=== PATIENT | male | born 1955 | race African-American/Black ===

== ENCOUNTER → 2017-04-03 | Outpatient (CLI) | payer MEDICARE, OTHER ==
[~2017-04-03] MED LIST: AMBIEN10 M1 ORAL; ATENOLOL25 MG ORAL; Bupivacaine 0.25% Inj 30ml INJ ONE; LEXAPRO10 MG ORAL; LISINOPRIL20 MG ORAL; LORAZEPAM1 MG ORAL; LYRICA25 MG ORAL; Propofol 10mg/ml 20ml IV ONE; Ropivacaine 5mg/ml Vial 20ml INJ ONE; VITAMIN D50000 UNI1 PO; [UNRECOGNIZED DRUG - OTHER] SQ
--- NOTE | 2017-04-03 11:33 | Diagnostic Imaging Report ---
Indication: Chest pain Technique: Continuous helical transaxial imaging of the chest was obtained from the thoracic inlet to the upper abdomen. No intravenous contrast was administered. Coronal 2-D reformats were also obtained. Total Dose length Product (DLP): [address] Dose Index Volume (CTDIvol): 17 mGy Comparison: 04/16/14 Findings: There are a few scattered hypodensities noted within the lungs. There is one 4 mm density at the left lower lobe again noted which was described previously and appears unchanged. There is evidence of old granulomatous disease with calcification in the left hilum and mediastinum. The aorta is normal caliber with some very mild mural calcification. The heart is unremarkable. The visualized part of the upper abdomen is unremarkable. Impression: Evidence of old right lowest disease. Other tiny noncalcified nodules appear stable compared to 04/16/14. Mild atherosclerotic vascular disease The CT scanner at [facility] is accredited by the [employer] and the scans are performed using dose optimization techniques as appropriate to a performed exam including Automatic Exposure control.
== END | disposition home or self-care (01) ==
LOC: CAT 10:00
DX: R07.9 Chest pain, unspecified (principal); M54.9 Dorsalgia, unspecified; R91.1 Solitary pulmonary nodule; I70.90 Unspecified atherosclerosis
CPT/HCPCS: 71250

== ENCOUNTER 2017-10-05 08:08 | Outpatient (CLI) | payer MEDICARE, OTHER ==
[~2017-10-05 08:08] MED LIST changes: -Bupivacaine 0.25% Inj 30ml INJ ONE; -Propofol 10mg/ml 20ml IV ONE; -Ropivacaine 5mg/ml Vial 20ml INJ ONE
--- NOTE | 2017-10-06 14:21 | Diagnostic Imaging Report ---
Indication: Reason For Exam: OSTEOP Technique: 10 mm thick slices obtained through the L2, L3, and L4 vertebral bodies. Cortical and trabecular regions of interest were drawn. The average trabecular bone mineral density was calculated. Total dose length product 30.19 mGycm. CTDIvol(s) 0.42, 2.94, 2.9, 3.01 mGy. Dose reduction achieved using automated exposure control Comparison: 09/29/2015 Findings: The calculated bone mineral density is 110 mg ca-MEDINA/ml. The T score is -2.44. This indicates the patient's bone mineral density is 2.44 standard deviations below that of normal 20-year-old males. The Z score is 0.27. This indicates the patient's bone mineral density is 0.27 standard deviations above that of age-matched controls Prior exam described bone mineral density of 112 and a T score of -2.36. Impression: Patient's bone mineral density is 10-25% below that normal 20-year-old males. Patient is considered osteopenic by WHO criteria. Insufficiency fracture risk is moderate. The CT scanner at [facility] is accredited by the [employer] and the scans are performed using protocols designed to limit radiation exposure to as low as reasonably achievable to attain images of sufficient resolution adequate for diagnostic evaluation.
== END 2017-10-05 10:08 | disposition home or self-care (01) ==
LOC: CAT 08:08
DX: M81.0 Age-related osteoporosis without current pathological fracture (principal); M85.88 Other specified disorders of bone density and structure, other site
CPT/HCPCS: 77078

== ENCOUNTER 2019-01-28 11:35 | Emergency (ER) | payer MEDICARE, OTHER ==
[~2019-01-28] VITALS: Ht 177.8 cm; Wt 72.6 kg
--- NOTE | 2019-01-28 11:55 | NUR ---
ED Nurse Note: Patient walked into ED c/o right lower quadrant abdominal pain for 3 weeks, patient reports it is worse when he is walking. patient reports pain is radiating to right lower quadrant to right lower groin. patient is alert awake x4 ambulatory breathing unlabored and even .
[2019-01-28 12:17] LABS: BASOPHILS % (AUTO) 0.9 % (0.0-2.0); EOSINOPHILS % (AUTO) 0.7 % (0.0-3.0); HEMATOCRIT 44.7 % (42.0-52.0); HEMOGLOBIN 15.7 G/DL (14.2-18.0); LYMPHOCYTES % (AUTO) 31.9 % (20.0-45.0); MEAN CORPUSCULAR VOLUME 91 FL (80-99); MONOCYTES % (AUTO) 4.7 % (1.0-10.0); NEUTROPHILS % (AUTO) 61.8 % (45.0-75.0); PLATELET COUNT 145 K/UL (150-450); RED BLOOD COUNT 4.91 M/UL (4.70-6.10); RED CELL DISTRIBUTION WIDTH 10.4 % (11.6-14.8); WHITE BLOOD COUNT 9.4 K/UL (4.8-10.8)
[2019-01-28 12:24] LABS: APPEARANCE,URINE CLEAR; BILIRUBIN, URINE NEGATIVE (NEGATIVE); COLOR,URINE PALE YELLOW; GLUCOSE, URINE (UA) NEGATIVE (NEGATIVE); KETONES,URINE NEGATIVE (NEGATIVE); LEUKOCYTE ESTERASE ,URINE NEGATIVE (NEGATIVE); NITRITE,URINE NEGATIVE (NEGATIVE); PH,URINE 6 (4.5-8.0); PROTEIN,URINE NEGATIVE (NEGATIVE); UROBILINOGEN,URINE NORMAL MG/DL (0.0-1.0)
[2019-01-28 12:29] VITALS: BP 148/98
[2019-01-28] MEDS ORDERED: LORazepam Inj 2mg/ml 1ml IV ONE (12:30)
[2019-01-28] MEDS ORDERED: Isovue-300 100ml vial INJ PRN (12:30)
[2019-01-28 12:41] LABS: ANION GAP 8 mmol/L (5-15); BLOOD UREA NITROGEN 10 mg/dL (7-18); CALCIUM 9.5 MG/DL (8.5-10.1); CARBON DIOXIDE 28 MMOL/L (21-32); CHLORIDE 100 MMOL/L (98-107); CREATININE 1.3 MG/DL (0.55-1.30); POTASSIUM 4.3 MMOL/L (3.5-5.1); SODIUM 136 MMOL/L (136-145)
[2019-01-28 12:44] LABS: ALANINE AMINOTRANSFERASE 31 U/L (12-78); ALBUMIN 4.3 G/DL (3.4-5.0); ALKALINE PHOSPHATASE 87 U/L (46-116); ASPARTATE AMINO TRANSFERASE 33 U/L (15-37); BILIRUBIN,TOTAL 0.4 MG/DL (0.2-1.0)
--- NOTE | 2019-01-28 13:13 | Emergency Room Report ---
History of Present Illness General Chief Complaint: Abdominal Pain Source: Patient Present Illness HPI Patient presents with complaints of right lower abdominal pain reports that ongoing for the past several days worse with trying to sit up Patient had seen his primary physician was sent to the emergency room for further evaluation Denies any vomiting or diarrhea denies any fevers or chills Patient has had previous right-sided inguinal surgery Denies any dysuria or frequency patient is having normal bowel movements Allergies: Coded Allergies: No Known Allergies (Unverified , 01/26/16) Patient History Past Medical History: see triage record Pertinent Family History: none Reviewed Nursing Documentation: PMH: Agreed; PSxH: Agreed Nursing Documentation-PMH Past Medical History: No History, Except For Hx Cardiac Problems: Yes - Hep C, HIV+ Hx Hypertension: Yes Hx Cancer: No Hx Gastrointestinal Problems: Yes Hx Neurological Problems: No - Osteoporosis Review of Systems All Other Systems: negative except mentioned in HPI Physical Exam Vital Signs Date Time Temp Pulse Resp B/P (MAP) Pulse Ox O2 Delivery O2 Flow Rate FiO2 01/28/19 11:46 98.1 73 20 93 Room Air 01/28/19 12:29 148/98 Sp02 EP Interpretation: reviewed, normal General Appearance: well appearing, no apparent distress Head: normocephalic, atraumatic Eyes: bilateral eye PERRL, bilateral eye EOMI ENT: hearing grossly normal, normal pharynx, TMs + canals normal, uvula midline Neck: full range of motion, supple, no meningismus, no bony tend Respiratory: lungs clear, normal breath sounds, no rhonchi, no respiratory distress, no retraction, no accessory muscle use Cardiovascular #1: normal peripheral pulses, regular rate, rhythm, no edema, no gallop, no JVD, no murmur Gastrointestinal: normal bowel sounds, non tender, soft, no mass, no organomegaly, non-distended, no guarding, no hernia, no pulsatile mass, no rebound Genitourinary: no CVA tenderness, other - Some mild fullness in the right inguinal area soft, question small hernia Neurologic: oriented x3, responsive, autism specialist III-XII nml as tested, motor strength/ tone normal, sensory intact Psychiatric: mood/affect normal Skin: normal color, no rash, warm/dry, palpation normal Lymphatic: normal inspection, no adenopathy Medical Decision Making Diagnostic Impression: Primary Impression: Right inguinal hernia Additional Impression: Abdominal pain ER Course With the history exam and presentation, multiple differentials considered, including but not limited to appendicitis, gastritis, cholecystitis, diverticulitis Blood work and imaging study are benign patient does have a small palpable hernia on the right side easily reducible at this time nontender and stable for close outpatient follow-up Labs Test 01/28/19 12:05 White Blood Count 9.4 K/UL (4.8-10.8) Red Blood Count 4.91 M/UL (4.70-6.10) Hemoglobin 15.7 G/DL (14.2-18.0) Hematocrit 44.7 % (42.0-52.0) Mean Corpuscular Volume 91 FL (80-99) Mean Corpuscular Hemoglobin 32.0 PG (27.0-31.0) Mean Corpuscular Hemoglobin Concent 35.2 G/DL (32.0-36.0) Red Cell Distribution Width 10.4 % (11.6-14.8) Platelet Count 145 K/UL (150-450) Mean Platelet Volume 10.4 FL (6.5-10.1) Neutrophils (%) (Auto) 61.8 % (45.0-75.0) Lymphocytes (%) (Auto) 31.9 % (20.0-45.0) Monocytes (%) (Auto) 4.7 % (1.0-10.0) Eosinophils (%) (Auto) 0.7 % (0.0-3.0) Basophils (%) (Auto) 0.9 % (0.0-2.0) Urine Color Pale yellow Urine Appearance Clear Urine pH 6 (4.5-8.0) Urine Specific Logan 1.005 (1.005-1.035) Urine Protein Negative (NEGATIVE) Urine Glucose (UA) Negative (NEGATIVE) Urine Ketones Negative (NEGATIVE) Urine Blood Negative (NEGATIVE) Urine Nitrite Negative (NEGATIVE) Urine Bilirubin Negative (NEGATIVE) Urine Urobilinogen Normal MG/DL (0.0-1.0) Urine Leukocyte Esterase Negative (NEGATIVE) Sodium Level 136 MMOL/L (136-145) Potassium Level 4.3 MMOL/L (3.5-5.1) Chloride Level 100 MMOL/L (98-107) Carbon Dioxide Level 28 MMOL/L (21-32) Anion Gap 8 mmol/L (5-15) Blood Urea Nitrogen 10 mg/dL (7-18) Creatinine 1.3 MG/DL (0.55-1.30) Estimat Glomerular Filtration Rate > 60 mL/min (>60) Glucose Level 128 MG/DL (74-106) Calcium Level 9.5 MG/DL (8.5-10.1) Total Bilirubin 0.4 MG/DL (0.2-1.0) Aspartate Amino Transf (AST/SGOT) 33 U/L (15-37) Alanine Aminotransferase (ALT/SGPT) 31 U/L (12-78) Alkaline Phosphatase 87 U/L (46-116) Total Protein 8.7 G/DL (6.4-8.2) Albumin 4.3 G/DL (3.4-5.0) Globulin 4.4 g/dL Albumin/Globulin Ratio 1.0 (1.0-2.7) Lipase 138 U/L (73-393) CT/MRI/US Diagnostic Results CT/MRI/US Diagnostic Results : Impression CT abdomen pelvisIMPRESSION: No acute findings. No significant change from the prior examination. Scarring in the left kidney. Last Vital Signs Date Time Temp Pulse Resp B/P (MAP) Pulse Ox O2 Delivery O2 Flow Rate FiO2 01/28/19 12:29 98.1 72 18 148/98 95 Room Air Status: improved Disposition: HOME, SELF-CARE Condition: Improved Referrals: NON PHYSICIAN (PCP) Additional Instructions: Patient is provided with the discharge instructions notified to follow up with primary doctor in the next 2-3 days otherwise return to the er with any worsening symptoms. Please note that this report is being documented using [employer] technology. This can lead to erroneous entry secondary to incorrect interpretation by the dictating instrument. Solis Duron DO January 28, 2019 13:13
--- NOTE | 2019-01-28 13:52 | Diagnostic Imaging Report ---
Indication: Abdominal pain Technique: Continuous helical transaxial imaging of the abdomen and pelvis was obtained from the lung bases to the pubic symphysis during intravenous contrast administration. Coronal 2-D reformats were also obtained. Study obtained in a Siemens sensation [address] Automatic Exposure Control was utilized. Total Dose length Product (DLP): 607.[address] Dose Index Volume (CTDIvol): 11.42 mGy Comparison: None Findings: Lung bases are clear. The gallbladder is unremarkable. The liver and spleen, pancreas, adrenal glands appear unremarkable. There is a punctate dystrophic calcification in the posterior part of the left kidney adjacent to a scar. This was noted on the prior occasion as well. There is no hydronephrosis. Kidneys enhance normally. No free fluid or free air identified. The appendix is normal. There is no evidence of bowel obstruction. The bladder is unremarkable. IMPRESSION: No acute findings. No significant change from the prior examination. Scarring in the left kidney. The CT scanner at [facility] is accredited by the [employer] and the scans are performed using dose optimization techniques as appropriate to a performed exam including Automatic Exposure control.
[2019-01-28 14:22] VITALS: BP 138/92
[2019-01-28 14:26] VITALS: BP 138/92
== END 2019-01-28 14:25 | disposition home or self-care (01) ==
LOC: EMR 12:01
DX: K40.90 Unilateral inguinal hernia, without obstruction or gangrene, not specified as recurrent (principal); R10.31 Right lower quadrant pain; B20 Human immunodeficiency virus [HIV] disease; Z86.19 Personal history of other infectious and parasitic diseases; I10 Essential (primary) hypertension; M81.0 Age-related osteoporosis without current pathological fracture
CPT/HCPCS: 36415; 74177; 80053; 81003; 83690; 85025; 96374; 99284; Q9967

== ENCOUNTER 2019-07-31 13:04 | Outpatient (CLI) | payer MEDICARE, OTHER | END 2019-07-31 15:04 | disposition home or self-care (01) | LOC: VAS 13:04 | DX: R60.0 Localized edema (principal); M79.604 Pain in right leg | CPT/HCPCS: 93970 ==